=== PATIENT | male | born 1990 | race Caucasian/White ===

== ENCOUNTER 2019-05-04 04:23 | Emergency (ER) | payer OTHER ==
[~2019-05-04] VITALS: Ht 177.8 cm; Wt 72.6 kg
[2019-05-04 04:28] VITALS: Ht 177.8 cm; Wt 72.6 kg
[2019-05-04 04:47] VITALS: BP 136/71
== END 2019-05-04 04:47 | disposition other institution (70) ==
LOC: ED 04:23
DX: Z02.89 Encounter for other administrative examinations (principal)